=== PATIENT | female | born 1935 | race Caucasian/White ===

== ENCOUNTER → 2017-06-07 | Outpatient (CLI) | payer OTHER, BC ==
--- NOTE | 2017-06-07 15:41 | MAMMOGRAPHY REPORT ---
BILATERAL DIGITAL DIAGNOSTIC MAMMOGRAM TOMOSYNTHESIS WITH CAD AND TARGETED RIGHT ULTRASOUND: 8 CLINICAL HISTORY: 81-year-old woman presents for follow-up in the breasts. She has a history of 2 pr ior benign ultrasound-guided core biopsies performed of masses in the 12:00 right breast, 7 cm from t he nipple and 1:00 right breast, 2 cm from the nipple, both of which yielded fat necrosis. A third p redominantly anechoic round circumscribed mass was seen in the 2:00 right breast which was not biopsy . Patient has not undergone mammography in several years, other than post procedure mammograms perfo rmed 12/01/2016. TECHNIQUE: Bilateral breast tomosynthesis in addition to standard 2D mammography was performed. Curre nt study was also evaluated with a Computer Aided Detection (CAD) system. COMPARISON: Comparison is made to exam dated: 12/01/2016 mammogram - [facility]. BREAST COMPOSITION: The tissue of both breasts is almost entirely fatty. FINDINGS: There are 2 metallic biopsy marker clips in the right breast at 12:00 and 1:00 middle and a nterior one third of the right breast a pacemaker is partially visualized projecting over the left pe ctoralis muscle on the MLO view. There are scattered benign-appearing punctate microcalcifications m ost numerous in the anterior aspect of the breasts. No suspicious masses, focal area of architectura l distortion, asymmetries or suspicious microcalcifications are seen bilaterally. Targeted ultrasound was performed in the right breast 12:00, 1:00 and 2:00 axes. In the right 1:00 p eriareolar breast, previously labeled 2:00 axes, to 7 m from the nipple, there is a round circumscrib ed prominently anechoic cyst without evidence of posterior shadowing or posterior acoustic enhancemen t, most likely representing benign fat necrosis. This currently measures 4 mm and is not changed com pared to the prior ultrasound. A mass is no longer identified in the right breast 1:00 axis, 2 cm fr om the nipple in area of prior biopsy with hematoma formation after the biopsy. A tiny 1.6 mm hypoec hoic to anechoic mass remains in the 12:00 right breast, 7 cm from the nipple, likely denoting decrea sed size of the biopsied mass. Overall, no suspicious solid or cystic mass is seen in the right jen[address] st on targeted ultrasound. No further close follow-up is needed at this time, particularly given 2 b enign biopsies and stable size of the third anechoic mass which most likely represent an additional a angie of fat necrosis. IMPRESSION: ACR BI-RADS CATEGORY 2: BENIGN, TARGETED ULTRASOUND ACR BI-RADS CATEGORY 2: BENIGN There is no mammographic evidence of malignancy in the breasts, no targeted sonographic evidence of m alignancy in the right breast. A previously observed postbiopsy hematoma has completely resolved. R ecommend routine bilateral mammography in one year. These results and recommendations were discussed with the patient at the time of the exam. Approximately 10% of breast cancers are not detected with mammography. A negative mammographic report should not delay biopsy if a clinically suggestive mass is present. Lupe Wagner M.D. ay/:06/07/2017 09:41:04 Computer Operations Technician: Ghazala NICOLAS)(Miguel), [facility] letter sent: Normal 1/2 BI-RADS Code: ACR BI-RADS Category 2: Benign Ultrasound BI-RADS: ACR BI-RADS Category 2: Benign
== END | disposition home or self-care (01) ==
LOC: C.MAMM 08:45
PROVIDERS: ATTEND Family Medicine
DX: N63.10 Unspecified lump in the right breast, unspecified quadrant (principal)

== ENCOUNTER → 2018-01-05 | Outpatient (CLI) | payer OTHER, BC ==
--- NOTE | 2018-01-05 12:09 | DIAGNOSTIC IMAGING REPORT ---
MRI OF THE BRAIN WITHOUT IV CONTRAST CLINICAL HISTORY: Change ischemic attack. COMPARISON STUDY: No priors. TECHNIQUE: MRI of the brain was performed utilizing various T1 and T2-weighted sequences in the axial, sagittal, and coronal planes. IV contrast was not administered for this examination. FINDINGS: Brain parenchyma: There are age-related involutional changes noting minimal subcortical and periventricular microangiopathic disease. The brain parenchyma is normal in appearance. There is no hemorrhage or mass effect. There is no restricted diffusion to suggest acute ischemia. Disla-white matter differentiation is preserved. No extra-axial fluid collection is seen. The cerebellar tonsils are normal in configuration. Ventricles, sulci, and cisterns: Prominent secondary to involutional change. Pituitary and sella: Unremarkable. Intracranial vasculature: Normal flow voids are maintained at the skull base. Orbits: The bony orbits are grossly intact. Orbital contents are normal in appearance noting bilateral ocular lens implants. Sinuses and mastoids: Secretions are noted in the right maxillary antrum. The paranasal sinuses are otherwise clear. The mastoid air cells are well pneumatized. Calvarium: Unremarkable. Cervical cord: Partially visualized cervical spinal cord is normal in morphology and signal intensity. IMPRESSION: No acute intracranial abnormality. Electronically signed by: Kentrell Felton M.D. 01/05/2018 12:07 PM Dictated Date/Time: 01/05/2018 11:52 AM
== END | disposition home or self-care (01) ==
LOC: C.MRI 10:38
PROVIDERS: ATTEND Internal Medicine
DX: G45.9 Transient cerebral ischemic attack, unspecified (principal); F41.9 Anxiety disorder, unspecified

== ENCOUNTER 2019-11-05 10:43 | Inpatient (IN) ==
--- NOTE | 2019-10-22 14:34 | PAT Medication Instructions ---
Medication Instructions Date of Service October 22, 2019 Home Medications amiodarone 100 mg tablet 100 mg PO QAM losartan 50 mg tablet 50 mg PO QAM metoprolol tartrate 50 mg tablet 50 mg PO HS famotidine 20 mg tablet 40 mg PO QAM levothyroxine 75 mcg capsule 75 mcg PO HS aspirin 325 mg PO QAM calcium carb-mag oxide-zinc ox 1 tab PO QAM fluticasone furoate [Arnuity Ellipta] 1 inh INHALATION QAM ibuprofen [Advil] 200 mg PO Q6H PRN montelukast 10 mg PO QAM omega 1-zbn-ltb-fish oil [Fish Oil] 1 cap PO QPM omeprazole 40 mg PO HS vitamins A,C,R-htkp-wzjoev [PreserVision AREDS] 1 tab PO BID ASK your surgeon for instructions aspirin 325 mg PO QAM ibuprofen [Advil] 200 mg PO Q6H PRN STOP taking 2 weeks before surgery If surgery is within 2 weeks, stop taking as soon as possible. omega 8-brl-umd-fish oil [Fish Oil] 1 cap PO QPM vitamins A,C,E-ozyf-vepmzv [PreserVision AREDS] 1 tab PO BID DO NOT take the morning of surgery losartan 50 mg tablet 50 mg PO QAM calcium carb-mag oxide-zinc ox 1 tab PO QAM montelukast 10 mg PO QAM Take morning of surgery With a small sip of water, OTHERWISE NOTHING TO EAT OR DRINK AFTER MIDNIGHT: amiodarone 100 mg tablet 100 mg PO QAM famotidine 20 mg tablet 40 mg PO QAM fluticasone furoate [Arnuity Ellipta] 1 inh INHALATION QAM Take evening before surgery metoprolol tartrate 50 mg tablet 50 mg PO HS levothyroxine 75 mcg capsule 75 mcg PO HS omeprazole 40 mg PO HS Other Notes If you have any questions please call us at [phone] or [phone] or [phone] or [phone]
--- NOTE | 2019-10-23 11:00 | Anesthesiology Consultation ---
Date of Service October 23, 2019 Assessment & Plan (1) Encounter for pre-operative examination: Patient requesting as little anesthetic as possible during surgery. COVID Status: As of 10/22 PAT assessment, patient denies travel to endemic area, known exposure/sick contacts, or symptoms of COVID19. Preoperative COVID19 testing to be completed prior to surgery. Chart Review Chart Review: Acceptable Risk for Surgery and Patient seen in Pre Admission Testing Teaching & Discussion Instructed NPO after midnight before surgery, except medications with 15 cc of water. Medication instructions provided according to the [facility] guidelines. History Surgery Operation Date: 11/05/19 07:00 Proposed Procedures p Left Total Knee Arthroplasty - Joon Martinez MD Height/Weight Height: 5 ft 2.5 in Weight: 76.204 kg Allergies Allergy/AdvReac Type Severity Reaction Status Date / Time codeine Allergy Severe Abdominal Verified 10/17/19 10:45 Pain latex Allergy Mild ITCHY Verified 10/17/19 10:46 azithromycin Allergy Unknown INTERFERES Verified 10/17/19 10:45 WITH AMIODARONE Medications Home Medications Medication Instructions Recorded Confirmed Last Taken amiodarone 100 mg tablet 100 mg PO QA 03/22/19 10/17/19 Unknown losartan 50 mg tablet 50 mg PO QA 03/22/19 10/17/19 Unknown metoprolol tartrate 50 mg tablet 50 mg PO 03/22/19 10/17/19 Unknown famotidine 20 mg tablet 40 mg PO QA 09/17/19 10/17/19 Unknown levothyroxine 75 mcg capsule 75 mcg PO 09/17/19 10/17/19 Unknown aspirin 325 mg PO QAM 10/17/19 10/17/19 Unknown calcium carb-mag oxide-zinc ox 1 tab PO QA 10/17/19 10/17/19 Unknown fluticasone furoate [Arnuity 1 inh INHALATION QA 10/17/19 10/17/19 Unknown Ellipta] ibuprofen [Advil] 200 mg PO Q6H PRN 10/17/19 10/17/19 Unknown montelukast 10 mg PO QA 10/17/19 10/17/19 Unknown omega 9-jua-tvj-fish oil [Fish Oil] 1 cap PO QPM 10/17/19 10/17/19 Unknown omeprazole 40 mg PO 10/17/19 10/17/19 Unknown vitamins A,C,M-evxz-bnlijt 1 tab PO BID 10/17/19 10/17/19 Unknown [PreserVision AREDS] Past Medical History Medical History Arthritis of left knee Cataract GERD (gastroesophageal reflux disease) Heart disease High blood pressure High cholesterol Hypothyroidism Lung nodule HX WHEEZING/HX-UNDER OBSERVATION F/U DR ART Mitral valve prolapse 02/2018 echo reported normal MV structure Pacemaker PLACED FOR BRADYCARDIA. LAST CHECK 09/26/19 F/U DR FULTON Skin cancer SQUAMOUS CELL Thyroid disease Exercise / Class Metabolic Activity III < 4 Walking/Shop/Light housework (Not doing stairs due to knee pain but feels if had to do them would not get SOB or CP. No SOB or CP with ambulation.) Past Family History Family History Brother Diabetes Father Diabetes Other Heart disease Past Surgical History Surgical History History of colonoscopy History of esophagogastroduodenoscopy (EGD) History of hysterectomy History of tonsillectomy S/P cholecystectomy S/P placement of cardiac pacemaker 5 YRS AGO Past Anesthesia History No Hx of Anesthesia Complications and No Family Hx of Anesthesia Complications History of PONV No Hx of PONV and Hx of Motion Sickness (few episodes but not usually) Social History Smoking Status: Never smoker Do You Dip or Chew Tobacco: No Hx Alcohol Use: No Hx Substance Use: No Review of Systems Pt denies any recent chest pain, shortness of breath, palpitations, cough, fever or URI. Physical Exam Vital Signs BP: 130/56 P: 62bpm SPO2: 94% RA T: 98.5 F R: 16 ENMT Mouth: + dentures (upper partial); no chipped teeth and no loose teeth Thyromental Distance: > or= 3.5 Finger Breadths (4) Mallampati Class: II Neck normal visual inspection; neck extension not limited Respiratory normal respiratory effort Auscultation: lungs clear to auscultation bilaterally Cardiovascular Rate/Rhythm: regular rate and regular rhythm Heart Sounds: no murmur Extremities: no edema Testing Laboratory Results 10/23/19 11:20 10/23/19 11:20 PT 11.0 Seconds (9.0-12.0) 10/23/19 11:20 INR 1.0 (0.9-1.1) 10/23/19 11:20 APTT 27.2 Seconds (21.0-31.0) 10/23/19 11:20 Blood Type B Positive 10/23/19 11:20 Antibody Screen NEGATIVE 10/23/19 11:20 Electrocardiogram Date: 10/23/19 Atrial-paced rhythm at 64bpm with prolonged AV conduction. Chest X-Ray Date: 10/22/19 Findings: + NAD Echocardiogram Date: 03/05/18 EF: 71% LV wall thickness is normal. RV cavity size is normal. RV systolic function is normal. LV grade 1 diastolic dysfunction. Mild MR and TR. No pericardial effusion noted. Normal right atrial pressure of 3 mmHg. Estimated PASP is 31 mmHg. The septal motion is abnormal consistent with right ventricular pacemaker. The LV wall motion is normal. Other Testing Pacemaker Interrogation 09/26/19 Model: [employer] inctronic Indication: bradycardia, paroxysmal tachycardia Implant date: 01/13/15 Pacin% AP, 1% RV Mode: AAIR/DDDR Battery: 3.01 volts, est longevity 6 years Summary: normal dual chamber pacemaker function. Chest CT 10/22/19 Impression: Small nodules in the right lower lobe and left upper lobe are stable dating back to 03/22/2018 and are likely not clinically significant in a patient of advanced age. If desired, a follow-up CT could be considered in 1 to 2 years to ensure longer-term stability.
[2019-10-23 13:06] LABS: Basophils # (auto) 0.04 K/uL (0-0.2); Basophils % (auto) 0.5 %; Eosinophils # (auto) 0.37 K/uL (0-0.5); Eosinophils % (auto) 4.4 %; Hematocrit (blood only) 37.9 % (37-47); Immature Granulocytes # (auto) 0.02 K/uL (0.00-0.02); Immature Granulocytes % (auto) 0.2 %; Lymphocytes # (auto) 1.25 K/uL (1.2-3.4); Lymphocytes % (auto) 14.9 %; Mean Corpuscular Hemoglobin 28.6 pg (25-34); Mean Corpuscular Hgb Conc 31.7 g/dL (32-36); Mean Corpuscular Volume 90.5 fL (80-100); Mean Platelet Volume 11.5 fL (7.4-10.4); Monocytes % (auto) 9.5 %; Neutrophils % (auto) 70.5 %; Platelet Count 251 K/uL (130-400); RDW Coefficient of Variation 15.1 % (11.5-14.5); RDW Standard Deviation 50.4 fL (36.4-46.3); Red Blood Count 4.19 M/uL (4.2-5.4); White Blood Count 8.38 K/uL (4.8-10.8)
[2019-10-23 13:17] LABS: BUN Creatinine Ratio 19.4 (10-20); Calcium 9.3 mg/dl (8.5-10.1); Creatinine Clr Calc Pharmacy 37.8 ml/min; Est GFR (African American) 55.2; Est GFR (Non-African American) 47.6; Potassium 4.1 mmol/L (3.5-5.1)
[2019-10-23 13:18] LABS: Partial Thromboplastin Time 27.2 Seconds (21.0-31.0)
--- NOTE | 2019-10-24 06:00 | Electrocardiogram Report ---
Test Reason : Blood Pressure : / mmHG Vent. Rate : 064 BPM Atrial Rate : 064 BPM P-R Int : 288 ms QRS Dur : 072 ms QT Int : 428 ms P-R-T Axes : -02 065 030 degrees QTc Int : 441 ms Atrial-paced rhythm with prolonged AV conduction Abnormal ECG No previous ECGs available Confirmed by Jamie Diaz ([id number]) on 10/24/2019 6:00:06 AM Referred By: Joon Martinez Confirmed By:Jamie Diaz
[~2019-11-05 10:43] MED LIST: ACETAMINOPHEN 500 MG TAB PO SCH; BUPIVACAINE 0.25% 30 ML VIAL ONE; BUPIVACAINE 0.5 % 5 MG/1 ML PF 10ML VIAL ONE; BUPIVACAINE LIPOSOME/PF 266 MG, BUPIVACAINE/EPINEPHRINE 50 ML, SODIUM CHLORIDE 0.9% 30 ... INFIL SCH; CEFAZOLIN 2000MG 2,000 MG/15 ML SYR IV SCH; FAMOTIDINE 20 MG TAB PO SCH; GABAPENTIN 300 MG CAP PO SCH; LR 500ML BOLUS, THEN 15ML/HR IV SCH; LR 60ML/HR IV SCH; METOCLOPRAMIDE HCL 10 MG TABLET PO SCH; TRANEXAMIC ACID 1,000 MG **IV Intra-op IV SCH
--- NOTE | 2019-11-05 10:53 | History & Physical Bridge Note ---
Date of Service November 05, 2019 History & Physical Bridge Note I have examined the patient, reviewed the History & Physical and in the interval since the performance of the History & Physical I have noted the following changes of clinical significance: no changes noted
[2019-11-05] MEDS ORDERED: ePHEDrine sulfate 50 MG/ML AMP IV PRN (11:41)
[2019-11-05] MEDS ORDERED: ONDANSETRON INJ 2 MG/ML 2 ML VIAL IV PRN ×2 (11:41→15:49)
[2019-11-05] MEDS ORDERED: ATROPINE SULFATE 0.1 MG/ML 10ML SYR IV PRN (11:41)
[2019-11-05] MEDS ORDERED: LIDOCAINE HCL 2% 2 ML VIAL/AMP(20MG/ML) INFIL ONE (12:08)
[2019-11-05] MEDS ORDERED: PROPOFOL IV EMULSION 10 MG/ML 20 ML VIAL IV ONE (12:08)
[2019-11-05] MEDS ORDERED: BUPIVACAINE/EPINEPHRINE 0.25% 1:200,000 30 ML VIAL ONE (12:54)
[2019-11-05] MEDS ORDERED: SODIUM CHLORIDE 0.9% PF 50 ML VIAL ONE (12:54)
[2019-11-05] MEDS ORDERED: BUPIVACAINE LIPOSOME 1.3% 266 MG/20 ML VIAL ONE (12:54)
[2019-11-05] MEDS ORDERED: BACITRACIN INJ 50,000 UNIT VIAL ONE (12:54)
--- NOTE | 2019-11-05 14:57 | Post Operative Brief Note ---
PG Immediate Post Op with CF Date of Surgery November 05, 2019 Pre & Post Diagnosis Operation Date: 11/05/19 12:30 Pre-Op Diagnosis: Left Knee Advanced Degenerative Joint Disease Post-Op Diagnosis: Left Knee Advanced Degenerative Joint Disease I identified the patient and participated in the time-out.: Yes Procedure Operation Date: 11/05/19 12:30 Actual Procedures p Left Total Knee Arthroplasty(Left) - Joon Martinez MD Surgeon Joon Martinez MD Human Factors Ergonomist Clementina, PAC Estimated Blood Loss 50 Findings Consistent with Post-Op Diagnosis Fluids 1100 cc Specimens Specimen Description: A. Left Knee Bone and Tissue Drains Smith Catheter (latex-free) Anesthesia Type Spinal MAC Complications none Disposition Accompanied Patient To Recovery: Yes Disposition: Recovery Room
--- NOTE | 2019-11-05 15:11 | Operative Report ---
Post Operative Report Pre & Post Diagnosis Operation Date: 11/05/19 12:30 Pre-Op Diagnosis: Left Knee Advanced Degenerative Joint Disease Post-Op Diagnosis: Left Knee Advanced Degenerative Joint Disease I identified the patient and participated in the time-out.: Yes Procedure Operation Date: 11/05/19 12:30 Actual Procedures p Left Total Knee Arthroplasty(Left) - Joon Martinez MD Surgeon Joon Martinez MD Birth Attendant Clementina, PAC Estimated Blood Loss 50 Findings Consistent with Post-Op Diagnosis Operative findings revealed advanced left knee medial compartment DJD. She had extensive grade 4 grom-gx-ilcd disease and eburnation of the medial femoral condyle medial and medial tibial plateau with some fragmentation of the medial tibial plateau. The rest of his knee joint was pretty well-preserved. She had a large knee joint effusion. Fluids 1100 cc. Specimens Left knee sent for pathology. Drains None. Anesthesia Type Spinal MAC Complications none Disposition Accompanied Patient To Recovery: No Disposition: Recovery Room Indications Patient is an 84-year-old female has had a several year history of increasing left knee pain discomfort is gotten suddenly worse over the past 6 months. She failed all conservative care. X-rays revealed advanced medial compartment DJD with some fragmentation of the tibial plateau. She elected proceed with surgical treatment. Description of Procedure Operative implants consist of: 1. Biomet Vanguard size 65 left posterior stabilized femoral component. 2. Biomet size 67 tibial tray. 3. 12 mm posterior box polyethylene insert. 4. 28 x 8 all poly-patella. Patient was taken to the operating room identified and placed on the operating table supine position protectors were properly padded. IV antibiotics were 5 by anesthesia team. A spinal anesthetic and abductor canal block had provided in the holding area. Smith cath was placed in sterile fashion. A left thigh turn was then placed in the left lower extremities and prepped and draped in usual sterile fashion. Left leg was elevated exsanguinated Esmarch and turns placed at 3 mmHg. An anterior approach to the left knee was then performed to longitudinal incision centered over the patella. Sharp dissection was cut through subcutaneous tissue down to the extensor mechanism. A medial parapatellar arthrotomy incision was made. Some subperiosteal dissection was carried out medially. The fat pad was dissected from each patella tendon. The lateral patellofemoral ligament was released. Patella was subluxated laterally and the knee was flexed. The osteophytes were taken off the distal femur. The ACL and PCL were then released from distal femur and the tibia subluxated anteriorly. External tibial alignment jig was then placed in the interface the tibia and adjusted 14 mm medially. Proximal tibial cut was made to move out a millimeter or 2 of bone from most efficient aspect medial tibial plateau. The tibia was sized to a size 67. Attention drawn the femur. The distal femur was entered with a sharp drill. Intramedullary canal was suction. A left 5 degree valgus cutting guide was placed. This femoral cutting block was pinned in place. Distal femoral cut was made to take an additional 3 mm of bone off distal femur. The femur was then sized to a size 65. We did downsize a slightly. The AP cutting block was pinned parallel to the epicondylar axis which was 3 degrees external rotation. The anterior cut, anterior chamfer, posterior cut, posterior chamfer cuts were made. Box cutting guide was placed in a just slight lateral box cut was made. The knee was flexed. The remnants of the medial lateral menisci were excised. The osteophytes were taken off the posterior aspect of the femur. A trial femoral component was placed. The tibial tray was pinned in maximum external rotation and drill and stem punch we used to create defect in proximal tip for the tibial tray. Knee was then trialed and the 12 mm insert fit most appropriately. Attention drawn the patella. The patella was cleaned of all soft tissues. Patella thickness measured 22 mm in thickness was cut down to 13. Was sized to a size 28 patella. The locals were drilled for 28 patella. Lateral osteophytes removed. Patella button was placed. Knee was taken through range of motion patella tracked nicely with no thumbs test. Attention drawn to place the permanent components. All trial components removed. Bone plug was placed in the distal femur limit blood loss. A double batch Palacos G cement was mixed. Biomet Vanguard size 65 left Po stabilized femoral component, size 67 tibial tray, a 10 mm posterior box polyethylene insert, and a 28 x 8 all poly-patella were then cemented in place. Knees brought out into full extension until cement hardened. Final cement check was then performed. The pericapsular tissues were injected with total 100 cc of combination of 20 cc of Exparel, 30 cc normal saline, 50 cc of quarter percent Marcaine with epinephrine. Patient did receive 1 g tranexamic acid. The tourniquet was then let down for final turn time 53 minutes. Hemostasis assured use electrocautery. The wounds once again irrigated. The extensor mechanism closed with combination 1 PDS suture #1 Vicryl suture in [id number] fashion. Extensor mechanism checked and found to be intact the subcutaneous tissue then closed with 2 Dexon suture in a buried interrupted fashion. Skin was closed with skin david. Leg was then cleaned dried a sterile dressing composed Xeroform, 4 x 4's, sterile cast padding, Rico bandage were applied. Patient transferred to the recovery room in stable condition. Patient tolerated procedure well no complications. I attest to the content of the Intraoperative Record and any orders documented therein. Any exceptions are noted below.
--- NOTE | 2019-11-05 15:18 | XRay Report ---
XR knee LT 1 or 2V routine CLINICAL HISTORY: Surgical Post Op COMPARISON: 09/17/2019 DISCUSSION: There are postsurgical changes of a total left knee arthroplasty and patellar resurfacing . The femoral and tibial components appear well seated. There are overlying skin david. There is ai r present within the soft tissues consistent with recent surgery. IMPRESSION: Postsurgical changes of a total left knee arthroplasty. ACT 112: Negative or not required by law. Electronically signed by: Ye Mccord M.D. 11/05/2019 3:16 PM
--- NOTE | 2019-11-05 15:25 | Anesthesiology Progress Note ---
Date of Service November 05, 2019 Anesthesia Post Procedure Vital Signs Vital Signs: Temp Pulse Pulse Resp BP Pulse Ox 11/05/19 15:15 62 16 131/49 L 96 11/05/19 15:05 60 16 124/46 L 96 11/05/19 14:59 36.2 C L 65 16 116/48 L 98 11/05/19 11:13 36.8 C 65 16 175/66 H 97 Transfer of Care Handoff Completed per policy Notes Mental Status: alert / awake / arousable and participated in evaluation Patient Amnestic to Procedure: Yes Nausea / Vomiting: adequately controlled Pain: adequately controlled Airway Patency, RR, SpO2: stable & adequate BP & HR: stable & adequate Hydration State: stable & adequate Neuraxial Anesthesia: was administered and sensory block is resolving Anesthetic Complications: no major complications apparent and Pt Satisfied with anesthetic care
[2019-11-05] MEDS ORDERED: MAGNESIUM HYDROXIDE SUSP 30 ML UDC PO PRN (15:49)
[2019-11-05] MEDS ORDERED: ALUMINUM/MAGNESIUM SUSP 30 ML UDC PO PRN (15:49)
[2019-11-05] MEDS ORDERED: bisacodyL 10 MG SUPP PR PRN (15:49)
[2019-11-05] MEDS ORDERED: METOCLOPRAMIDE HCL INJ 5 MG/ML 2 ML VIAL IV PRN (15:49)
[2019-11-05] MEDS ORDERED: TRAMADOL HCL 50 MG TABLET PO PRN (15:49)
[2019-11-05] MEDS ORDERED: NALOXONE HCL 0.4 MG/1 ML VIAL/CARP IV PRN (15:49)
[2019-11-05] MEDS ORDERED: HYDROmorphone INJ 0.5 MG/0.5 ML SYR IV PRN (15:49)
[2019-11-05] MEDS: SODIUM CHLORIDE 0.9% 1000ML 1,000 ML IV SCH (17:22)
[2019-11-05] MEDS: FERROUS GLUCONATE 324 MG TAB PO SCH (17:25)
[2019-11-05] MEDS: ASCORBIC ACID 500 MG TAB PO SCH (17:25)
[2019-11-05] MEDS: KETOROLAC TROMETHAMINE 15 MG/ML VIAL IV SCH ×2 (17:26→23:32)
[2019-11-05] MEDS: CEFAZOLIN 1000MG 1,000 MG/7.5 ML SYR IV SCH (20:18)
[2019-11-05] MEDS: DOCUSATE SODIUM 100 MG CAP PO SCH (20:19)
[2019-11-05] MEDS: PANTOprazole 40 MG TAB PO SCH (20:19)
[2019-11-05] MEDS: ASPIRIN 81 MG ECTAB PO SCH (20:19)
[2019-11-05] MEDS: OMEGA-3 (PURIFIED FISH OIL) 1 GM CAP PO SCH (20:20)
[2019-11-05] MEDS: LEVOTHYROXINE SODIUM 75 MCG TABLET PO SCH (20:21)
[2019-11-05] MEDS ORDERED: TRANEXAMIC ACID / 0.7% NACL 1,000 MG/100 ML BAG IV SCH (21:00)
[2019-11-05] MEDS: ACETAMINOPHEN 500 MG TAB PO SCH (21:36)
[2019-11-05] MEDS: MONTELUKAST SODIUM 10 MG TABLET PO SCH (21:36)
[2019-11-05] MEDS: SENNA 8.6 MG TAB PO SCH (21:36)
[2019-11-05] MEDS: METOPROLOL SUCC 50MG EXT REL TAB PO SCH (21:37)
[2019-11-06] MEDS: SODIUM CHLORIDE 0.9% 1000ML 1,000 ML IV SCH (03:26)
[2019-11-06] MEDS: CEFAZOLIN 1000MG 1,000 MG/7.5 ML SYR IV SCH (05:56)
[2019-11-06] MEDS: KETOROLAC TROMETHAMINE 15 MG/ML VIAL IV SCH ×4 (05:59→23:30)
[2019-11-06] MEDS: ACETAMINOPHEN 500 MG TAB PO SCH ×3 (05:59→21:38)
[2019-11-06 06:49] LABS: Hematocrit (blood only) 30.9 % (37-47); Hemoglobin 9.8 g/dL (12.0-16.0); Mean Corpuscular Hemoglobin 28.2 pg (25-34); Mean Corpuscular Hgb Conc 31.7 g/dL (32-36); Mean Platelet Volume 11.2 fL (7.4-10.4); Platelet Count 192 K/uL (130-400); RDW Standard Deviation 48.6 fL (36.4-46.3); Red Blood Count 3.47 M/uL (4.2-5.4); White Blood Count 9.19 K/uL (4.8-10.8)
--- NOTE | 2019-11-06 07:05 | Orthopedic Progress Note ---
Date of Service November 06, 2019 Assessment & Plan (1) Status post total left knee replacement: She is doing well today. Her pain is controlled. We will continue PT/OT. She is weightbearing as tolerated. Continue JAYANT stockings/SCDs, aspirin for DVT prophylaxis. Her hemoglobin is 9.8 this morning's we will continue with iron supplement. Continue discharge planning, likely for discharge home tomorrow and set up with home health care. Subjective 84-year-old female postop day 1 from left total knee replacement. She is doing pretty well this morning. Pain is controlled. Denies any chest pain or shortness of breath. Denies any lightheadedness or dizziness. Physical Exam Physical Exam: She is alert and oriented. She is in no distress. Dressing on her left lower extremity is clean, dry, and intact. She is able do a good straight leg raise. She can dorsiflex and plantarflex. She is neurovascular intact. Results & Data ([facility]) Vital Signs (Past 12 Hours) Vital Signs Temp Pulse Resp BP Pulse Ox 11/06/19 03:19 36.6 C 69 15 93/56 L 97 11/05/19 23:15 36.4 C L 61 18 125/79 97 PG Care Time/CCT Total # of Minutes Spent Total Time Spent with Patient: Total time spent is greater than 50% in coordination of care (as documented) at patient's floor/unit and/or counseling patient: Coding Level of Care Code None Diagnoses Status post total left knee replacement Z96.652
[2019-11-06 07:16] LABS: BUN Creatinine Ratio 17.3 (10-20); Creatinine Clr Calc Pharmacy 33.3 ml/min; Est GFR (African American) 47.1; Est GFR (Non-African American) 40.6; Potassium 3.7 mmol/L (3.5-5.1)
[2019-11-06] MEDS: MONTELUKAST SODIUM 10 MG TABLET PO SCH (07:32)
[2019-11-06] MEDS ORDERED: CALCIUM CARB MAG OXIDE ZINC OX PO SCH (09:00)
[2019-11-06] MEDS: DOCUSATE SODIUM 100 MG CAP PO SCH ×2 (09:03→21:37)
[2019-11-06] MEDS: ASPIRIN 81 MG ECTAB PO SCH ×2 (09:03→21:37)
[2019-11-06] MEDS: MULTIVITAMIN TAB PO SCH (09:03)
[2019-11-06] MEDS: LOSARTAN POTASSIUM 50 MG TAB PO SCH (09:04)
[2019-11-06] MEDS: FAMOTIDINE 40 MG TABLET PO SCH (09:04)
[2019-11-06] MEDS: AMIODARONE 200 MG TAB PO SCH (09:04)
[2019-11-06] MEDS: CEROVITE ADV FORMULA TAB PO SCH (09:04)
[2019-11-06] MEDS: FERROUS GLUCONATE 324 MG TAB PO SCH ×2 (09:05→17:51)
[2019-11-06] MEDS: ASCORBIC ACID 500 MG TAB PO SCH ×2 (09:06→17:51)
[2019-11-06] MEDS: PANTOprazole 40 MG TAB PO SCH (21:37)
[2019-11-06] MEDS: LEVOTHYROXINE SODIUM 75 MCG TABLET PO SCH (21:37)
[2019-11-06] MEDS: METOPROLOL SUCC 50MG EXT REL TAB PO SCH (21:37)
[2019-11-06] MEDS: SENNA 8.6 MG TAB PO SCH (21:37)
[2019-11-06] MEDS: OMEGA-3 (PURIFIED FISH OIL) 1 GM CAP PO SCH (21:37)
[2019-11-07] MEDS: KETOROLAC TROMETHAMINE 15 MG/ML VIAL IV SCH ×2 (05:55→11:39)
[2019-11-07] MEDS: ACETAMINOPHEN 500 MG TAB PO SCH (06:00)
--- NOTE | 2019-11-07 09:08 | Progress Notes ---
DATE: 11/07/2019 SUBJECTIVE: An 84-year-old female postop day 2 from a left knee replacement. She is doing well. She has been surprised at how little pain she has had. No chest pain or shortness of breath. Not feeling dizzy or lightheaded. OBJECTIVE: VITAL SIGNS: Temperature 36.5. Vital signs stable. GENERAL: Shows a pleasant elderly female. She is sitting in her bedside chair, looks pretty comfortable. EXTREMITIES: Examination of the left leg reveals the dressing to be in place. She does have a little bit of bloody drainage inferiorly. Calf is soft and supple. She is neurologically intact. ASSESSMENT: An 84-year-old female postop day 2 from a left knee replacement, doing well. Pain is controlled. She is neurologically intact. She is slightly anemic, but asymptomatic. PLAN: 1. DVT prophylaxis including thigh-high TEDs, SCDs, and aspirin twice a day. 2. PT/OT. Weight bear as tolerated. Left total knee protocol. 3. Pain control, doing well with current pain regimen. 4. Anemia. Currently, asymptomatic. Will continue iron supplementation. 5. Disposition: Plan to discharge to home with some home health likely later today.
[2019-11-07] MEDS: MULTIVITAMIN TAB PO SCH (09:10)
[2019-11-07] MEDS: CEROVITE ADV FORMULA TAB PO SCH (09:10)
[2019-11-07] MEDS: AMIODARONE 200 MG TAB PO SCH (09:10)
[2019-11-07] MEDS: LOSARTAN POTASSIUM 50 MG TAB PO SCH (09:11)
[2019-11-07] MEDS: ASPIRIN 81 MG ECTAB PO SCH (09:12)
[2019-11-07] MEDS: FERROUS GLUCONATE 324 MG TAB PO SCH (09:12)
[2019-11-07] MEDS: DOCUSATE SODIUM 100 MG CAP PO SCH (09:12)
[2019-11-07] MEDS: ASCORBIC ACID 500 MG TAB PO SCH (09:12)
[2019-11-07] MEDS: FAMOTIDINE 40 MG TABLET PO SCH (09:13)
--- NOTE | 2019-11-11 10:09 | Discharge Summary ---
Date of Service November 11, 2019 Admission HPI Per Admitting Provider Documented in the H&P Admission Exam (Per Admitting) Constitutional Documented in the H&P Discharge Data Consultations 11/05/19 15:49 Consult Case Management - Discharge Planning Routine Procedures Performed Operation Date: 11/05/19 12:30 Actual Procedures p Left Total Knee Arthroplasty(Left) - Joon Martinez MD Hospital Course (1) Status post total left knee replacement: 84-year-old female admitted on 11/05/2019 and underwent total knee replacement. She tolerated the procedure well and there were no complications. She was transferred to the PACU postoperatively and later to the orthopedic floor for further care. She was given Ancef for antibiotic prophylaxis. She was given JAYANT stockings, SCDs, and aspirin for DVT prophylaxis. Hemoglobin, hematocrit, and vital signs monitored during hospital stay remained stable. She did have some postoperative anemia but not requiring blood transfusions. She was given iron supplement. There were no complications during her hospital stay. Postoperative day 2 she was tolerating a regular diet, pain was controlled with oral pain medicine, and she was participating in physical therapy. On postop day 2 she was discharged home set up with home health. She was given printed discharge instruction as well as new prescriptions for extra strength Tylenol, aspirin, iron supplement, tramadol. Continue physical therapy. She is weightbearing as tolerated. JAYANT stockings. Follow-up proximately 2 weeks postop or sooner if any problems or concerns. Coding Level of Care Code None Diagnoses Status post total left knee replacement Z96.652
== END 2019-11-07 13:38 | disposition home health service (06) | DRG 470 ==
LOC: 3E 10:43 → ASU 10:43